=== PATIENT | male | born 1990 | race Caucasian/White ===

== ENCOUNTER 2020-08-05 13:23 | Emergency (ER) | payer BC, MEDICAID ==
--- NOTE | 2020-08-05 14:29 | ER Document Report ---
ED Medical Screen (RME) - General Stated Complaint: INSECT BITE Time Seen by Provider: 08/05/20 14:26 Notes: Patient is a 29-year-old male who presents emergency department with a chief complaint of right arm infection. Patient reports he was moving a refrigerator yesterday and noticed cobwebs. States that he noticed an area of redness and swelling a few hours afterwards. Is unsure if he was bit by a spider. Patient reports over night developed increased redness, swelling, streaking of redness up the arm and drainage of yellow pus. Patient reports having chills. Denies a history of MRSA or staph. Denies history of diabetes. - Related Data Allergies/Adverse Reactions: No Known Allergies Allergy (Unverified 08/05/20 14:21) Physical Exam - Vital signs Vitals: Temp Pulse Resp BP Pulse Ox 98.9 F 110 H 18 127/80 H 99 08/05/20 13:28 08/05/20 13:28 08/05/20 13:28 08/05/20 13:28 08/05/20 13:28 - Extremities Notes: Patient has a 1.5 x 1.5 cm circular area to the forearm, blackened tissue, yellow drainage, surrounding cellulitis and streaking of redness up the arm. Course - Re-evaluation Re-evalutation: 08/05/20 14:28 Patient is slightly tachycardic with heart rate of 110. Will obtain basic labs, establish a saline lock with blood cultures. I have greeted and performed a rapid initial assessment of this patient. A comprehensive ED assessment and evaluation of the patient, analysis of test results and completion of the medical decision making process will be conducted by additional ED providers. - Vital Signs Vital signs: Temp Pulse Resp BP Pulse Ox 98.9 F 110 H 18 127/80 H 99 08/05/20 13:28 08/05/20 13:28 08/05/20 13:28 08/05/20 13:28 08/05/20 13:28
[2020-08-05 15:07] LABS: ABSOLUTE BASOPHILS # (AUTO) 0.1 10^3/uL (0.0-0.2); ABSOLUTE EOSINOPHILS # (AUTO) 0.2 10^3/uL (0.0-0.6); ABSOLUTE LYMPHOCYTES (AUTO) 1.7 10^3/uL (0.5-4.7); ABSOLUTE MONOCYTES (AUTO) 0.9 10^3/uL (0.1-1.4); ABSOLUTE NEUT (AUTO) 8.1 10^3/uL (1.7-8.2); BASOPHILS % (AUTO) 0.6 % (0-2); EOSINOPHILS % (AUTO) 1.4 % (0-6); HEMATOCRIT 42.6 % (37.9-51.0); HEMOGLOBIN 14.9 g/dL (13.5-17.0); LYMPHOCYTES % (AUTO) 15.5 % (13-45); MEAN CORPUSCULAR VOLUME 89 fl (80-97); MONOCYTES % (AUTO) 8.4 % (3-13); PLATELET COUNT 267 10^3/uL (150-450); RED CELL DISTRIBUTION WIDTH 13.8 % (11.5-14.0); SEGMENTED NEUTROPHILS % (AUTO) 74.1 % (42-78); TOTAL CELLS COUNTED % (AUTO) 100 %
[2020-08-05 15:18] LABS: ALBUMIN 4.7 g/dL (3.5-5.0); ALKALINE PHOSPHATASE 125 U/L (38-126); ANION GAP 7 (5-19); ASPARTATE AMINO TRANSFERASE 25 U/L (17-59); BILIRUBIN,DIRECT 0.3 mg/dL (0.0-0.4); BILIRUBIN,TOTAL 0.5 mg/dL (0.2-1.3); BLOOD UREA NITROGEN 7 mg/dL (7-20); CALCIUM 9.4 mg/dL (8.4-10.2); CARBON DIOXIDE 28 mmol/L (22-30); CHLORIDE 103 mmol/L (98-107); GLUCOSE 71 mg/dL (75-110); POTASSIUM 4.4 mmol/L (3.6-5.0); TOTAL PROTEIN 7.9 g/dL (6.3-8.2)
[2020-08-05] MEDS ORDERED: NORMAL SALINE 1000 ML 1,000 ML IV ONE (17:21)
[2020-08-05] MEDS ORDERED: SULFAMETHOXAZOLE/TRIMETHOPRIM 800-160 MG TABLET PO ONE (17:31)
[2020-08-05] MEDS ORDERED: CEPHALEXIN 500 MG CAPSULE PO ONE (17:31)
--- NOTE | 2020-08-05 17:35 | ER Document Report ---
HPI - HPI Patient complains to provider of: Spider bite to arm Time Seen by Provider: 08/05/20 14:26 Onset: Yesterday Onset/Duration: Gradual Quality of pain: Achy Pain Level: 3 Context: Patient states that he may have been bit by a spider yesterday. Patient complains of redness, swelling to the right forearm. Patient states that he squeezed on the arm and pus came out of the arm. Patient reports some chills without any fever. Patient denies any history of MRSA. Patient denies any history of IV drug abuse. Associated Symptoms: Other - Right forearm infection. denies: Fever Exacerbated by: Denies Relieved by: Denies Similar symptoms previously: No Recently seen / treated by doctor: No - ROS ROS below otherwise negative: Yes Systems Reviewed and Negative: Yes All other systems reviewed and negative - CONSTITUTIONAL Constitutional: REPORTS: Chills. DENIES: Fever - GASTROINTESTINAL Gastrointestinal: DENIES: Nausea - MUSCULOSKELETAL Musculoskeletal: REPORTS: Extremity pain, Swelling - DERM Skin Color: Erythema Notes: Insect bite Past Medical History - General Information source: Patient - Social History Smoking Status: Current Every Day Smoker Chew tobacco use (# tins/day): No Frequency of alcohol use: Social Drug Abuse: None Occupation: [employer] Family History: Reviewed & Not Pertinent Patient has homicidal ideation: No - Medical History Medical History: Negative Surgical Hx: Negative Vertical Provider Document - CONSTITUTIONAL Exam Limitations: No Limitations General Appearance: WD/WN, No Apparent Distress - HEENT HEENT: Atraumatic, Normocephalic - NECK Neck: Normal Inspection, Supple. negative: Lymphadenopathy-Left, Lymphadenopathy-Right - RESPIRATORY Respiratory: Breath Sounds Normal, No Respiratory Distress - CARDIOVASCULAR Cardiovascular: Regular Rate, Regular Rhythm, No Murmur Pulses: Normal: Radial - BACK Back: Normal Inspection - MUSCULOSKELETAL/EXTREMETIES Musculoskeletal/Extremeties: MAEW, FROM - NEURO Level of Consciousness: Awake, Alert, Appropriate Motor/Sensory: No Motor Deficit, No Sensory Deficit - DERM Integumentary: Warm, Dry Notes: Patient with crusted open wound that measures about 1.5 cm in diameter to the volar aspect of the right forearm, area with surrounding erythema and induration, patient does have lymphangitic streaking that extends up to the right humerus. Course - Re-evaluation Re-evalutation: 08/05/20 17:33 Patient with abscess to right forearm with surrounding erythema lymphangitic streaking. Patient reports squeezing on the area and having purulent drainage out today. No fluctuance appreciated on examination. When discussing the streaking extending up the arm, patient states that this has actually improved as compared to yesterday evening. Patient denies any history of IV drug abuse, patient denies any trauma or any concern about possible foreign body at this time. Patient has not been on any antibiotics. Will start patient on antib iotics and encourage patient to return tomorrow for repeat exam if symptoms have not improved. Patient advised to return immediately for any worsening. - Vital Signs Vital signs: Temp Pulse Resp BP Pulse Ox 98.9 F 110 H 18 127/80 H 99 08/05/20 13:28 08/05/20 13:28 08/05/20 13:28 08/05/20 13:28 08/05/20 13:28 - Laboratory Result Diagrams: 08/05/20 14:45 08/05/20 14:45 Laboratory results interpreted by me: 08/05/20 08/05/20 14:45 14:45 WBC 11.0 H Glucose 71 L 08/05/20 17:34 Labs- All tests 24 hr 08/05/20 08/05/20 14:45 14:45 WBC 11.0 H RBC 4.80 Hgb 14.9 Hct 42.6 MCV 89 MCH 31.0 MCHC 35.0 RDW 13.8 Plt Count 267 Lymph % (Auto) 15.5 Mobile % (Auto) 8.4 Eos % (Auto) 1.4 Baso % (Auto) 0.6 Absolute Neuts (auto) 8.1 Absolute Lymphs (auto) 1.7 Absolute Monos (auto) 0.9 Absolute Eos (auto) 0.2 Absolute Basos (auto) 0.1 Seg Neutrophils % 74.1 Sodium 138.3 Potassium 4.4 Chloride 103 Carbon Dioxide 28 Anion Gap 7 BUN 7 Creatinine 0.90 Est GFR ( Amer) > 60 Est GFR (MDRD) Non-Af > 60 Glucose 71 L Calcium 9.4 Total Bilirubin 0.5 Direct Bilirubin 0.3 Neonat Total Bilirubin Not Reportable Neonat Direct Bilirubin Not Reportable Neonat Indirect Bili Not Reportable AST 25 ALT 40 Alkaline Phosphatase 125 Total Protein 7.9 Albumin 4.7 Discharge - Discharge Clinical Impression: Lymphangitis, Abscess of arm, right Cellulitis Qualifiers: Site of cellulitis: extremity Site of cellulitis of extremity: upper extremity Laterality: right Qualified Code(s): L03.113 - Cellulitis of right upper limb Condition: Stable Disposition: HOME, SELF-CARE Instructions: Abscess ([facility]), Cellulitis ([facility]), Cephalexin ([facility]), Oral Narcotic Medication ([facility]), Trimethoprim-Sulfa ([facility]) Additional Instructions: Return immediately for any new or worsening symptoms, return tomorrow for repeat examination if your symptoms have not improved Followup with your primary care provider, call tomorrow to make a followup appointment Do not take it or squeeze the skin lesion Apply warm compresses to the area Prescriptions: Sulfamethoxazole/Trimethoprim [Bactrim Ds Tablet] 1 each PO BID #20 tablet Mupirocin [Bactroban 2% Ointment 22 gm] 1 applic TP TID #22 gm Cephalexin Monohydrate [Keflex 500 mg Capsule] 500 mg PO Q6H 7 Days #28 capsule Hydrocodone/Acetaminophen [[place] 5-325 mg Tablet] 1 tab PO Q6 PRN #8 tablet PRN Reason: Referrals: [facility] [Provider Group] - Follow up as needed
[2020-08-05] MEDS ORDERED: HYDROCODONE/ACETAMINOPHEN 5-325 MG TABLET PO ONE (17:53)
[2020-08-05 18:33] VITALS: BP 120/61
== END 2020-08-05 18:53 | disposition home or self-care (01) ==
LOC: ER 13:23
DX: L03.113 Cellulitis of right upper limb (principal); L02.413 Cutaneous abscess of right upper limb; F17.200 Nicotine dependence, unspecified, uncomplicated
CPT/HCPCS: 99284; 96360; 36415; 87040; 85025; 80053; J7030

== ENCOUNTER 2020-11-12 12:40 | Emergency (ER) | payer SELFPAY ==
[2020-11-12] MEDS ORDERED: RINGERS LACTATED IV ONE (14:11)
[2020-11-12] MEDS ORDERED: ACETAMINOPHEN 325 MG TABLET PO ONE (14:11)
[2020-11-12] MEDS ORDERED: CEFTRIAXONE 1 GM/D5W RTU 1 GM/50 ML RTUPB IV ONE (14:11)
[2020-11-12] MEDS ORDERED: LIDOCAINE 1%/EPINEPHRINE INJ 20 ML VIAL INJ ONE (14:13)
[2020-11-12] MEDS ORDERED: CLINDAMYCIN 600 MG/D5W RTU 600 MG/50 ML RTUPB IV ONE (14:28)
--- NOTE | 2020-11-12 14:28 | ER Document Report ---
ED Wound - General Chief Complaint: Wound Infection Stated Complaint: CYST Time Seen by Provider: 11/12/20 13:54 Notes: CHIEF COMPLAINT: Fever, abscess HPI: 29-year-old male presenting for abscess in the left axillary region with onset of fever. Patient states the fever began last night and has gone up to almost 103 at home. He developed a small raised area approximately 3 or 4 days ago in the left axillary region and is progressively gotten worse to begin draining last night and he did squeeze the area but the redness has significantl y worsened today. ROS: See HPI - all other systems were reviewed and are otherwise negative Constitutional: Positive fever Eyes: no drainage, no blurred vision ENT: no runny nose, no sore throat Cardiovascular: no chest pain Resp: no SOB, no cough GI: no vomiting, no diarrhea, no abdominal pain : no dysuria Integumentary: Positive rash Allergy: no hives Musculoskeletal: Positive extremity pain or swelling Neurological: no numbness/tingling, no weakness MEDICATIONS: I agree with the patient medications as charted by the RN. ALLERGIES: I agree with the allergies as charted by the RN. PAST MEDICAL HISTORY/PAST SURGICAL HISTORY: Reviewed and agree as charted by RN. SOCIAL HISTORY: Reviewed and agree as charted by RN. FAMILY HISTORY: No significant familial comorbid conditions directly related to patient complaint EXAM: Reviewed vital signs as charted by RN. CONSTITUTIONAL: Alert and oriented and responds appropriately to questions. Well-appearing; well-nourished HEAD: Normocephalic; atraumatic EYES: PERRL; Conjunctivae clear, sclerae non-icteric ENT: normal nose; no rhinorrhea; moist mucous membranes NECK: Supple without meningismus; non-tender; no cervical lymphadenopathy, no masses CARD: Mild tachycardia; no murmurs, no clicks, no rubs, no gallops; symmetric distal pulses RESP: Normal chest excursion without splinting or tachypnea; breath sounds clear and equal bilaterally; no wheezes, no rhonchi, no rales, pulse oximetry 97% on room air not hypoxic ABD/GI: non-distended BACK: The back appears normal EXT: Normal ROM in all joints; no cyanosis, no effusions, no edema SKIN: Normal color for age and race; warm; dry; good turgor; there is an indurated area in the lower left axillary region measuring approximately 4.5 cm x 3 cm. Small lateral area that is draining a purulent material. There is surrounding erythema measuring approximately 13 cm x 10 cm. NEURO: Moves all extremities equally; Motor and sensory function intact PSYCH: The patient's mood and manner are appropriate. Grooming and personal hygiene are appropriate. MDM: 29-year-old male with a fever of 102.8 with an abscess with cellulitis to the left axillary region. Will start screening sepsis labs, antibiotics, plan to incise and drain the area. - Related Data Allergies/Adverse Reactions: No Known Allergies Allergy (Verified 11/12/20 13:45) Home Medications: none Past Medical History - Social History Smoking Status: Current Every Day Smoker Chew tobacco use (# tins/day): No Frequency of alcohol use: Occasional Drug Abuse: None Family History: Reviewed & Not Pertinent Patient has homicidal ideation: No Pulmonary Medical History: Reports: Hx Asthma - childhood Physical Exam - Vital signs Vitals: Temp Pulse Resp BP Pulse Ox 102.8 F H 110 H 16 145/70 H 100 11/12/20 12:51 11/12/20 12:51 11/12/20 12:51 11/12/20 12:51 11/12/20 12:51 Course - Re-evaluation Re-evalutation: 11/12/20 17:50 Patient lactic acid was normal. He does have a leukocytosis. Nursing will marked the cellulitis. We will continue patient on clindamycin. He will return in 2 days for packing removal and recheck or return sooner for worsening symptoms. Patient will continue Motrin for fevers. - Vital Signs Vital signs: Temp Pulse Resp BP Pulse Ox 102.8 F H 110 H 16 145/70 H 100 11/12/20 16:50 11/12/20 12:51 11/12/20 12:51 11/12/20 12:51 11/12/20 12:51 - Laboratory Results Result Diagrams: 11/12/20 14:41 11/12/20 14:41 Laboratory Results Interpreted: 11/12/20 11/12/20 14:41 14:41 WBC 17.0 H Lymph % (Auto) 8.1 L Absolute Neuts (auto) 14.0 H Seg Neutrophils % 82.1 H Sodium 135.1 L Critical Laboratory Results Reviewed: No Critical Results - Radiology Results Critical Radiology Results Reviewed: No Critical Results Procedures - Incision and Drainage Left Arm Time completed: 15:52 Type: Complex, Single Anesthetic type: 1% Lidocaine w/epi mL's of anesthetic: 3 Blade size: 11 I&D procedure: Chlorprep applied, Iodoform packing placed, Sterile dressing applied Incision Method: Incision made by scalpel Amount/type of drainage: 3 purulent Discharge - Discharge Clinical Impression: Abscess of axilla, left, Cellulitis of axilla, left Fever Qualifiers: Fever type: due to other condition Qualified Code(s): R50.81 - Fever presenting with conditions classified elsewhere Condition: Stable Disposition: HOME, SELF-CARE Instructions: Abscess ([facility]), Clindamycin ([facility]), Oral Narcotic Medication ([facility]) Additional Instructions: 1. packing out in 2-3 days 2. follow up with your primary care provider for further evaluation in 2-3 days or return to the emergency department for packing removal 3. medicines as prescribed, take Percocet for pain, Motrin for fever 4. return sooner for any worsening condition, increasing redness or onset of fever 5. apply warm compresses to the wound area 2-3 times daily Prescriptions: Clindamycin HCl [Cleocin 150 mg Capsule] 150 mg PO Q6 #40 capsule Ibuprofen [Motrin 600 Mg Tablet] 600 mg PO TID #15 tablet Hydrocodone/Acetaminophen [[place] 5-325 mg Tablet] 1 tab PO Q4 PRN #15 tablet PRN Reason:
[2020-11-12 15:07] LABS: ABSOLUTE BASOPHILS # (AUTO) 0.1 10^3/uL (0.0-0.2); ABSOLUTE EOSINOPHILS # (AUTO) 0.1 10^3/uL (0.0-0.6); ABSOLUTE LYMPHOCYTES (AUTO) 1.4 10^3/uL (0.5-4.7); ABSOLUTE MONOCYTES (AUTO) 1.4 10^3/uL (0.1-1.4); BASOPHILS % (AUTO) 0.7 % (0-2); EOSINOPHILS % (AUTO) 0.9 % (0-6); HEMATOCRIT 40.5 % (37.9-51.0); HEMOGLOBIN 13.7 g/dL (13.5-17.0); LYMPHOCYTES % (AUTO) 8.1 % (13-45); MEAN CORPUSCULAR HEMOGLOBIN 29.9 pg (27.0-33.4); MEAN CORPUSCULAR HGB CONC 33.8 g/dL (32.0-36.0); MEAN CORPUSCULAR VOLUME 89 fl (80-97); MONOCYTES % (AUTO) 8.2 % (3-13); PLATELET COUNT 253 10^3/uL (150-450); RED BLOOD COUNT 4.57 10^6/uL (4.35-5.55); SEGMENTED NEUTROPHILS % (AUTO) 82.1 % (42-78); TOTAL CELLS COUNTED % (AUTO) 100 %
[2020-11-12 15:31] LABS: ALKALINE PHOSPHATASE 94 U/L (38-126); ANION GAP 8 (5-19); ASPARTATE AMINO TRANSFERASE 20 U/L (17-59); BILIRUBIN,DIRECT 0.3 mg/dL (0.0-0.4); BILIRUBIN,TOTAL 0.7 mg/dL (0.2-1.3); BLOOD UREA NITROGEN 10 mg/dL (7-20); CARBON DIOXIDE 28 mmol/L (22-30); CHLORIDE 99 mmol/L (98-107); GLUCOSE 98 mg/dL (75-110); POTASSIUM 4.3 mmol/L (3.6-5.0); TOTAL PROTEIN 7.2 g/dL (6.3-8.2)
[2020-11-12] MEDS ORDERED: IBUPROFEN 600 MG TABLET PO ONE (16:55)
[2020-11-12] MEDS ORDERED: HYDROCODONE/ACETAMINOPHEN 5-325 MG (6 TAB/ER DISP) PO PRN (17:51)
[2020-11-12 20:02] VITALS: BP 124/61
== END 2020-11-12 19:30 | disposition home or self-care (01) ==
LOC: ER 12:40
DX: L02.412 Cutaneous abscess of left axilla (principal); R21 Rash and other nonspecific skin eruption; R50.9 Fever, unspecified; F17.200 Nicotine dependence, unspecified, uncomplicated
CPT/HCPCS: 10061; 99284; 96361; 96375; 96365; 36415; 87040; 87070; 87205; 83605; 85025; 87075; 87077; 80053; 87186; J3490; J7120; J0696

== ENCOUNTER 2020-11-14 19:02 | Emergency (ER) | payer SELFPAY ==
[2020-11-14 19:25] VITALS: BP 134/84
--- NOTE | 2020-11-14 20:19 | ER Document Report ---
ED Suture/Wound Recheck - General Chief Complaint: Abscess Stated Complaint: PACKING OUT OF ARM Time Seen by Provider: 11/14/20 20:11 Primary Care Provider: [facility] [Provider Group] - Follow up as needed [facility] [Provider Group] - Follow up as needed [facility] [Provider Group] - Follow up as needed [facility] [Provider Group] - Follow up as needed Mode of Arrival: Ambulatory Information source: Patient Notes: 29-year-old male presented to ED for recheck of abscess. He did have packing in the abscess to the left axilla. Wound is still very deep with large amount of drainage. Packing has been removed will repack with half-inch iodoform patient will be discharged home and he has been instructed to return in 2 days to have this wound reexamined. Adult REVIEW OF SYSTEMS: CONSTITUTIONAL : Denies fever, chills, or sweats. Denies recent illness. EENT: Denies eye, ear, throat, or mouth pain or symptoms. Denies nasal or sinus congestion. CARDIOVASCULAR: Denies chest pain. RESPIRATORY: Denies cough, cold, or chest congestion. Denies shortness of breath, difficulty breathing, or wheezing. GASTROINTESTINAL: Denies abdominal pain. Denies nausea, vomiting, or diarrhea. Denies constipation. Last BM: GENITOURINARY: Denies difficulty urinating, painful urination, burning, frequency, or blood in urine. FEMALE GENITOURINARY: Denies vaginal bleeding, abnormal or irregular periods. LMP: MUSCULOSKELETAL: Denies neck or back pain or joint pain or swelling. SKIN: Denies rash or skin lesions. HEMATOLOGIC : Denies easy bruising or bleeding. LYMPHATIC: Denies swollen, enlarged glands. NEUROLOGICAL: Denies altered mental status or loss of consciousness. Denies headache. Denies weakness or paralysis or loss of use of either side. Denies problems with gait or speech. Denies sensory or motor loss. PSYCHIATRIC: Denies anxiety or stress or depression. ALL OTHER SYSTEMS REVIEWED AND NEGATIVE. PHYSICAL EXAMINATION: GENERAL: Well-appearing, well-nourished and in no acute distress. HEAD: Atraumatic, normocephalic. EYES: Pupils equal round extraocular movements intact, conjunctiva are normal. ENT: Nares patent NECK: Normal range of motion LUNGS: No respiratory distress Musculoskeletal: Normal range of motion NEUROLOGICAL: Normal speech, normal gait. PSYCH: Normal mood, normal affect. SKINC abscess to left axilla packing removed and replaced large amount of purulent drainage still - HPI Previous ED treatment: I&D of abscess Antibiotics given previously: Prescription Quality of pain: Achy Severity: Moderate Pain Level: 3 Symptoms since procedure: Other - Drainage Exacerbated by: Movement Relieved by: Denies - Related Data Allergies/Adverse Reactions: No Known Allergies Allergy (Verified 11/12/20 13:45) Past Medical History - Social History Smoking Status: Current Every Day Smoker Cigarette use (# per day): Yes - 2-3 black in milds a day Smoking Education Provided: Yes - 3 minutes Frequency of alcohol use: None Drug Abuse: None Lives with: Family Family History: Reviewed & Not Pertinent Patient has suicidal ideation: No Patient has homicidal ideation: No - Past Medical History Cardiac Medical History: Reports: None Pulmonary Medical History: Reports: Hx Asthma - childhood EENT Medical History: Reports: None Neurological Medical History: Reports: None Endocrine Medical History: Reports: None Renal/ Medical History: Reports: None Malignancy Medical History: Reports None GI Medical History: Reports: None Musculoskeletal Medical History: Reports None Skin Medical History: Reports Hx Cellulitis, Reports Hx MRSA Psychiatric Medical History: Reports: None Traumatic Medical History: Reports: None Infectious Medical History: Reports: Hx MRSA Surgical Hx: Negative Past Surgical History: Reports: None - Immunizations Immunizations up to date: Yes Physical Exam - Vital signs Vitals: Temp Pulse Resp BP Pulse Ox 99.1 F 76 16 134/84 H 97 11/14/20 19:21 11/14/20 19:21 11/14/20 19:21 11/14/20 19:21 11/14/20 19:21 Course - Vital Signs Vital signs: Temp Pulse Resp BP Pulse Ox 98.7 F 76 16 134/84 H 97 11/14/20 20:28 11/14/20 19:21 11/14/20 19:21 11/14/20 19:21 11/14/20 19:21 - Laboratory Results Critical Laboratory Results Reviewed: No Critical Results - Radiology Results Critical Radiology Results Reviewed: No Critical Results Discharge - Discharge Clinical Impression: Packing changed, Abscess of axilla, left Condition: Stable Disposition: HOME, SELF-CARE Additional Instructions: You were seen today for reevaluation of a abscess to your left axilla The packing has been removed the wound has been irrigated with 50 cc of saline. The packing has been replaced and dressing changed. Please change this dressing at least twice a day but do not remove the packing to you return in 2 days. Please ask for Gurpreet to see you when you return so that I can reassess it and determine if it needs to be repacked. Here from 10 AM to 10 PM These take your antibiotics as prescribed. She states she only taken 1 dose. Please take them as prescribed and do not miss any doses and please take them until they are completed. Forms: Smoking Cessation Education, Elevated Blood Pressure Referrals: [facility] [Provider Group] - Follow up as needed [facility] [Provider Group] - Follow up as needed [facility] [Provider Group] - Follow up as needed [facility] [Provider Group] - Follow up as needed
== END 2020-11-14 20:28 | disposition home or self-care (01) ==
LOC: ER 19:02
DX: Z48.01 Encounter for change or removal of surgical wound dressing (principal); L02.412 Cutaneous abscess of left axilla; F17.290 Nicotine dependence, other tobacco product, uncomplicated; Z86.14 Personal history of Methicillin resistant Staphylococcus aureus infection
CPT/HCPCS: 99281

== ENCOUNTER 2020-11-16 18:01 | Emergency (ER) | payer SELFPAY ==
[2020-11-16 18:14] VITALS: BP 140/82
--- NOTE | 2020-11-16 18:57 | ER Document Report ---
ED Suture/Wound Recheck - General Chief Complaint: Wound Recheck Stated Complaint: PACKING REMOVAL Time Seen by Provider: 11/16/20 18:45 Primary Care Provider: [facility] [Provider Group] - Follow up as needed [facility] [Provider Group] - Follow up as needed [facility] [Provider Group] - Follow up as needed [facility] [Provider Group] - Follow up as needed [facility] [Provider Group] - Follow up as needed [facility] [Provider Group] - Follow up as needed Mode of Arrival: Ambulatory Information source: Patient Notes: 29-year-old male presented to ED for recheck of abscess. He did have packing in the abscess to the left axilla. Wound is still very deep with large amount of drainage. Packing has been removed it was then irrigated with 50 cc of normal saline and redressed. He does no longer needs packing. There is no redness no inflammation patient states that area is no longer near as painful as it was. He has been given instructions for changing the dressing 3 times a day to irrigate with water with the shower and to follow-up with his primary care and or return to the ED for any increase in symptoms. Adult REVIEW OF SYSTEMS: CONSTITUTIONAL : Denies fever, chills, or sweats. Denies recent illness. EENT: Denies eye, ear, throat, or mouth pain or symptoms. Denies nasal or sinus congestion. CARDIOVASCULAR: Denies chest pain. MUSCULOSKELETAL: Denies neck or back pain or joint pain or swelling. SKIN: Abscess to the left axilla drainage much less than last time packing was removed no longer needs packing he has been given instructions for care HEMATOLOGIC : Denies easy bruising or bleeding. LYMPHATIC: Denies swollen, enlarged glands. NEUROLOGICAL: Denies altered mental status or loss of consciousness. Denies headache. Denies weakness or paralysis or loss of use of either side. Denies problems with gait or speech. Denies sensory or motor loss. PSYCHIATRIC: Denies anxiety or stress or depression. ALL OTHER SYSTEMS REVIEWED AND NEGATIVE. PHYSICAL EXAMINATION: GENERAL: Well-appearing, well-nourished and in no acute distress. HEAD: Atraumatic, normocephalic. EYES: Pupils equal round extraocular movements intact, conjunctiva are normal. ENT: Nares patent NECK: Normal range of motion LUNGS: No respiratory distress Musculoskeletal: Normal range of motion NEUROLOGICAL: Normal speech, normal gait. PSYCH: Normal mood, normal affect. SKIN abscess to left axilla packing removed much less drainage than last time much less tenderness to palpation. - HPI Previous ED treatment: I&D of abscess Antibiotics given previously: Prescription Quality of pain: Achy Severity: Moderate Pain Level: 3 Symptoms since procedure: Drainage, Pain Exacerbated by: Movement Relieved by: Denies - Related Data Allergies/Adverse Reactions: No Known Allergies Allergy (Verified 11/12/20 13:45) Past Medical History - General Information source: Patient - Social History Smoking Status: Current Every Day Smoker Chew tobacco use (# tins/day): No Frequency of alcohol use: None Drug Abuse: None Family History: Reviewed & Not Pertinent Patient has suicidal ideation: No - Past Medical History Cardiac Medical History: Reports: None Pulmonary Medical History: Reports: Hx Asthma - childhood EENT Medical History: Reports: None Neurological Medical History: Reports: None Endocrine Medical History: Reports: None Renal/ Medical History: Reports: None Malignancy Medical History: Reports None GI Medical History: Reports: None Musculoskeletal Medical History: Reports None Skin Medical History: Reports Hx Cellulitis, Reports Hx MRSA Psychiatric Medical History: Reports: None Traumatic Medical History: Reports: None Infectious Medical History: Reports: Hx MRSA - Immunizations Immunizations up to date: Yes Physical Exam - Vital signs Vitals: Temp Pulse Resp BP Pulse Ox 98.0 F 66 20 140/82 H 98 11/16/20 18:11 11/16/20 18:11 11/16/20 18:11 11/16/20 18:11 11/16/20 18:11 Course - Vital Signs Vital signs: Temp Pulse Resp BP Pulse Ox 98.0 F 66 20 140/82 H 98 11/16/20 18:11 11/16/20 18:11 11/16/20 18:11 11/16/20 18:11 11/16/20 18:11 - Laboratory Results Critical Laboratory Results Reviewed: No Critical Results - Radiology Results Critical Radiology Results Reviewed: No Critical Results Discharge - Discharge Clinical Impression: Encounter for wound re-check, Wound packing removed Condition: Stable Disposition: HOME, SELF-CARE Additional Instructions: Continue taking your antibiotics as prescribed. Please clean wound as instructed at least twice a day. Please change dressing at least 3 times a day Acetaminophen Acetaminophen may be taken for pain relief or fever control. It's much safer than aspirin, offering a wider range of "safe" dosages. It is safe during . Some brand names are Tylenol, Panadol, Datril, Anacin 3, Tempra, and Liquiprin. Acetaminophen can be repeated every four hours. The following are maximum recommended dosages: WEIGHT Dose Drops Elixir Chewable(80mg) (LBS.) drprs=droppers tsp=teaspoon 6 40 mg .4 ml (1/2) 6-11 80 mg .8 ml (full) 1/2 tsp 1 tab 12-16 120 mg 1 1/2 drprs 3/4 tsp 1 1/2 tabs 17-23 160 mg 2 drprs 1 tsp 2 tabs 24-30 240 mg 3 drprs 1 1/2 tsp 3 tabs 30-35 320 mg 2 tsp 4 tabs 36-41 360 mg 2 1/4 tsp 4 1/2 tabs 42-47 400 mg 2 1/2 tsp 5 tabs 48-53 480 mg 3 tsp 6 tabs 54-59 520 mg 3 1/4 tsp 6 1/2 tabs 60-64 560 mg 3 1/2 tsp 7 tabs 65-70 600 mg 3 3/4 tsp 7 1/2 tabs 71-76 640 mg 4 tsp 8 tabs 77-82 720 mg 4 1/2 tsp 9 tabs 83-88 800 mg 5 tsp 10 tabs >89 pounds or adults 650 mg to 900 mg Acetaminophen can be repeated every four hours. Maximum daily dose not to exceed 4000 mg. These maximum recommended dosages are slightly higher than the dosages written on the product container, but these dosages are very safe and well below the toxic dosage for acetaminophen. Ibuprofen Ibuprofen is an excellent, safe drug for pain control. In addition, it has potent antiinflammatory effects which are beneficial, especially in the treatment of injuries, arthritis, or tendonitis. It's best to take ibuprofen with food. Persons with ulcer disease or allergy to aspirin should notify their physician of this before taking ibuprofen. Take the medication exactly as prescribed. Don't take additional doses unless instructed to do so by your doctor. If you develop wheezing, shortness of breath, hives, faintness, stomach pain, vomiting, or dark black stools, return for re-evaluation at once. FOLLOW-UP CARE: If you have been referred to a physician for follow-up care, call the physicians office for an appointment as you were instructed or within the next two days. If you experience worsening or a significant change in your symptoms, notify the physician immediately or return to the Emergency Department at any time for re-evaluation. Forms: Elevated Blood Pressure Referrals: [facility] [Provider Group] - Follow up as needed [facility] [Provider Group] - Follow up as needed [facility] [Provider Group] - Follow up as needed [facility] [Provider Group] - Follow up as needed [facility] [Provider Group] - [facility] up [facility] - Follow up as needed
== END 2020-11-16 19:06 | disposition home or self-care (01) ==
LOC: ER 18:01
DX: Z48.01 Encounter for change or removal of surgical wound dressing (principal); L02.412 Cutaneous abscess of left axilla; F17.200 Nicotine dependence, unspecified, uncomplicated; Z86.14 Personal history of Methicillin resistant Staphylococcus aureus infection
CPT/HCPCS: 99281